=== PATIENT | female | born 1950 | race Two or more races ===

== ENCOUNTER → 2018-02-09 | Outpatient (CLI) | payer OTHER | END | disposition home or self-care (01) | LOC: SONOGRAMA 08:43 | DX: E04.2 Nontoxic multinodular goiter (principal) ==

== ENCOUNTER 2019-06-12 08:34 | Outpatient (CLI) | payer OTHER | END 2019-06-12 10:54 | disposition home or self-care (01) | LOC: SONOGRAMA 08:34 | DX: E04.2 Nontoxic multinodular goiter (principal) ==